=== PATIENT | male | born 1955 | race Caucasian/White ===

== ENCOUNTER 2017-12-11 20:54 | Emergency (ER) | payer MEDICAID, OTHER ==
[~2017-12-11] VITALS: Ht 165.1 cm; Wt 64.9 kg
[~2017-12-11 20:54] MED LIST: CIPR500T4 PO; FINA5TAB1 PO; PHEN-329 PO
[2017-12-11 21:06] VITALS: BP 124/97
--- NOTE | 2017-12-11 21:11 | NUR ---
PT AMBULATED TO ER BED WITH STEADY GAIT
--- NOTE | 2017-12-11 21:15 | NUR ---
62/M CAME IN ED, C/O URINARY RETENTION X1 DAY, PT HAD PROSTATECTOMY IN [place] 3 WEEKS AGO. PT IS C/O 10/10 INTERMITTENT GENITAL PAIN, NONRADIATING, WORSENING WHEN ATTEMPTING TO PEE. PT IS UNABLE TO URINATE AT THIS TIME. PT HAS AN INDWELLING URINARY CATH, CAPPED. PT STATED HE IS UNDER BLADDER TRAINING AT THIS TIME. PT DENIES FEVER, CP, SOB, COUGH, N/V/D; SKIN IS INTACT, PINK/WARM/DRY; AAOX4, PERRL, WITH EVEN AND STEADY GAIT; LUNGS CLEAR BL, BREATHING UNLABORED; HR EVEN AND REGULAR, BL PERIPHERAL PULSES PRESENT; BS ACTIVE X4, NO TENDERNESS TO PALPATION; PATIENT POSITIONED FOR COMFORT; HOB ELEVATED; BEDRAILS UP X2; BED DOWN.
--- NOTE | 2017-12-11 22:17 | NUR ---
PT FEELING THE URGE TO PEE WITH SUPRAPUBIC FULLNESS AND PAIN, IRRIGATED BLADDER VIA INDWELLING URINARY CATH WITH 300ML STERILE WATER, 450ML CLOUDY ORANGE URINE COLLECTED. PT REPORTS RELIEF OF PAIN AT THIS TIME. WILL NOTIFY
--- NOTE | 2017-12-11 22:39 | NUR ---
REMOVED PT'S PREVIOUS URINARY CATH, PT TOLERATED WELL. RE-INSERTED NEW CASTANO CATH PER , 10ML DARK YANYC CLOUDY URINE NOTED, WILL MONITOR. PT TOLERATED WELL.
[2017-12-11 23:53] LABS: APPEARANCE,URINE CLOUDY (CLEAR); BILIRUBIN,URINE 1+ (NEGATIVE); BLOOD, URINE 3+ (NEGATIVE); LEUKOCYTE ESTERASE ,URINE 2+ (NEGATIVE); NITRITE, URINE POSITIVE (NEGATIVE); PH,URINE 5.5 (5.0-9.0); UGLUCOSE TRACE (NEGATIVE)
[2017-12-12 00:12] LABS: COLOR,URINE AMBER (YELLOW)
[2017-12-12 00:13] LABS: RBC,URINE TOO NUMEROUS TO COUN /HPF (0-5)
[2017-12-12 00:14] LABS: WBC,URINE 80-100 /HPF (0-5)
[2017-12-12] MEDS ORDERED: IBUPROFEN 800 MG TAB PO ONE (00:30)
[2017-12-12] MEDS ORDERED: PHENAZOPYRIDINE 100 MG TAB PO ONE (00:30)
[2017-12-12] MEDS ORDERED: LEVOFLOXACIN 500 MG TAB PO ONE (00:30)
--- NOTE | 2017-12-12 01:30 | NUR ---
URINARY CATH CONNECTED TO LEG BAG. PT EDUCATED, PT VERBALIZED UNDERSTANDING.
[2017-12-12 01:50] VITALS: BP 141/85
--- NOTE | 2017-12-12 01:50 | NUR ---
Patient discharged with v/s stable. Written and verbal after care instructions given and explained. Patient alert, oriented and verbalized understanding of instructions. Ambulatory with steady gait. All questions addressed prior to discharge. ID band removed. Patient advised to follow up with PMD. Rx of MOTRIN, PYRIDIUM, MACROBID given. Patient educated on indication of medication including possible reaction and side effects. Opportunity to ask questions provided and answered.
--- NOTE | 2017-12-14 18:54 | NUR ---
ADDENDUM: URINE CULTURE RESULTS, E. COLI ESBL. REVIEWED BY DR. ROSALES. NO FARTHER TX. NEEDED,PT. DISCHARGED WITH MACRODANTIN/PYRIDIUM.
== END 2017-12-12 01:50 | disposition home or self-care (01) ==
LOC: MED 20:54
DX: N39.0 Urinary tract infection, site not specified (principal)
CPT/HCPCS: 51702; 81001; 87086; 87186; 99284

== ENCOUNTER 2018-01-30 13:16 | Emergency (ER) | payer MEDICAID, OTHER ==
[~2018-01-30] VITALS: Ht 165.1 cm; Wt 59.4 kg
[2018-01-30 13:35] VITALS: BP 129/107
--- NOTE | 2018-01-30 14:12 | NUR ---
Dr. Kilgore evaluating patient at bedside.
[2018-01-30] MEDS ORDERED: KETOROLAC 60 MG/2 ML VIAL IM ONE (14:25)
[2018-01-30] MEDS ORDERED: LEVOFLOXACIN 500 MG TAB PO ONE (14:25)
[2018-01-30] MEDS ORDERED: MORPHINE SULFATE 2 MG/ML SYR IM ONE (14:25)
[2018-01-30 15:02] LABS: APPEARANCE,URINE SL CLOUDY (CLEAR); BILIRUBIN,URINE NEGATIVE (NEGATIVE); BLOOD, URINE 2+ (NEGATIVE); COLOR,URINE YELLOW (YELLOW); LEUKOCYTE ESTERASE ,URINE 3+ (NEGATIVE); NITRITE, URINE POSITIVE (NEGATIVE); UGLUCOSE NEGATIVE (NEGATIVE)
[2018-01-30 15:19] LABS: BARBITURATE, URINE NEG. ng/ml (NEG <=200); BENZODIAZEPINE, URINE NEG. ng/mL (NEG <=200); CANNABINOID, URINE NEG. ng/mL (NEG <=50); COCAINE, URINE NEG. ng/mL (NEG <=300); OPIATE, URINE NEG. ng/mL (NEG <=2000); PHENCYCLIDINE SCREEN,URINE NEG. ng/mL (NEG <=25)
[2018-01-30 15:56] LABS: RBC,URINE 3-10 (FEW) /HPF (0-5); WBC,URINE TOO MANY TO COUNT /HPF (0-5)
[2018-01-30 16:17] VITALS: BP 135/68
--- NOTE | 2018-01-30 16:17 | NUR ---
Patient discharged with v/s stable. Written and verbal after care instructions given and explained. Patient alert, oriented and verbalized understanding of instructions. Ambulatory with steady gait. All questions addressed prior to discharge. ID band removed. Patient advised to follow up with PMD. Rx of PYRIDIUM AND LEVAQUIN AND FLOMAX given. Patient educated on indication of medication including possible reaction and side effects. Opportunity to ask questions provided and answered.
== END 2018-01-30 16:17 | disposition home or self-care (01) ==
LOC: MED 13:16
DX: N39.0 Urinary tract infection, site not specified (principal); N41.9 Inflammatory disease of prostate, unspecified; Z79.2 Long term (current) use of antibiotics; Z79.899 Other long term (current) drug therapy
CPT/HCPCS: 80305; 81001; 96372; 96374; 99284; J1885; J2270

== ENCOUNTER 2018-01-31 12:22 | Emergency (ER) | payer OTHER ==
[~2018-01-31] VITALS: Ht 162.6 cm; Wt 63.5 kg
[2018-01-31 12:31] VITALS: BP 123/90
--- NOTE | 2018-01-31 12:36 | NUR ---
Patient ambulated to bed 12. RN evaluating patient at bedside.
--- NOTE | 2018-01-31 12:41 | NUR ---
C/O DIZZINESS AFTER TAKING NEW ABX LEVOFLOXACIN SINCE YESTERDAY. PT WAS SEEN HERE YESTERDAY, TREATED AND DC'D FOR UTI. DENIES N/V/SOB DENIES FEVERS/CHILLS. RESP EVENA ND UNLABORED. ABD SOFT, FLAT, NO REBOUND TENDERNESS. REPORTS POLYURIA, BUT DENIES DYSURIA. HX: HTN
--- NOTE | 2018-01-31 13:21 | NUR ---
PT LAYING IN BED, WITH EYES CLOSED, IN NAD. WAITING FIR ER DISPOSITION,
[2018-01-31] MEDS ORDERED: METOCLOPRAMIDE 10 MG TAB PO ONE (13:40)
[2018-01-31] MEDS ORDERED: ONDANSETRON 4 MG ODT PO ONE (13:40)
[2018-01-31] MEDS ORDERED: MECLIZINE 25 MG TAB PO ONE (13:40)
--- NOTE | 2018-01-31 14:09 | NUR ---
ORDESR RECEIVED, MEDICATED ORDERED.
[2018-01-31 14:30] VITALS: BP 123/89
== END 2018-01-31 14:30 | disposition home or self-care (01) ==
LOC: MED 12:22
DX: T39.8X5A Adverse effect of other nonopioid analgesics and antipyretics, not elsewhere classified, initial encounter (principal); Y92.89 Other specified places as the place of occurrence of the external cause; I10 Essential (primary) hypertension
CPT/HCPCS: 99284; J8597; S0119

== ENCOUNTER 2018-10-25 05:25 | Inpatient (IN) | payer BC, OTHER ==
[~2018-10-25] VITALS: Ht 162.6 cm; Wt 61.2 kg
[2018-10-25 05:30] VITALS: BP 119/80
--- NOTE | 2018-10-25 05:30 | NUR ---
PT TAKEN TO BED 11. TRIAGE PERFORMED AT BEDSIDE.
--- NOTE | 2018-10-25 05:40 | NUR ---
PT TO ED WITH C/O EPIGASTRIC PAIN INCREASING OVER 2 HRS. +N/V. ABD IS SOFT NON TENDER. NO DISTENTION NOTED. BOWEL SOUNDS ACTIVE. REPORTS MILD PAIN UPON PALPATION. PT PLACED INTO BED, PENDING MD CHAO.
[2018-10-25] MEDS ORDERED: NACL 0.9% 1,000 ML IV ONE ×3 (05:52→07:55)
[2018-10-25] MEDS ORDERED: MORPHINE SULFATE 4 MG/ML SYR IVP ONE (05:55)
[2018-10-25] MEDS ORDERED: ONDANSETRON 4 MG/2 ML VIAL IVP ONE (05:55)
--- NOTE | 2018-10-25 06:05 | NUR ---
EKG PERFORMED AT BEDSIDE WITH TRIAGE NURSE AND SPOUSE PRESENT. PT COVERED IN GOWN AND BLANKET DURING PROCEDURE
[2018-10-25 06:27] LABS: ANION GAP 12.3 (8-16); CARBON DIOXIDE 27.3 mmol/L (21-32); CREATININE 0.9 mg/dL (0.7-1.3); POTASSIUM 3.6 mmol/L (3.5-5.1)
--- NOTE | 2018-10-25 06:30 | NUR ---
PT REPORTS RELIEF OF PAIN AFTER MORPHINE ADMIN. CURRENTLY 10/20.
[2018-10-25 06:31] LABS: ALBUMIN 3.3 g/dL (3.4-5.0)
[2018-10-25 06:48] LABS: BASOPHILS % (AUTO) 0.1 % (0.0-2.0); EOSINOPHILS % (AUTO) 0.1 % (0.0-4.0); HEMOGLOBIN 17.2 g/dL (12.0-18.0); LYMPHOCYTES # (AUTO) 1.3 K/uL (2.0-11.5); LYMPHOCYTES % (AUTO) 11.9 % (20.5-51.1); MEAN CORPUSCULAR HEMOGLOBIN 32 pg (27-31); MEAN CORPUSCULAR HGB CONC 34 g/dL (33-37); MEAN CORPUSCULAR VOLUME 91.9 fL (80-94); MONOCYTES # (AUTO) 1.3 K/uL (0.8-1.0); MONOCYTES % (AUTO) 12.6 % (1.7-9.3); NEUTROPHILS # (AUTO) 8.1 K/uL (1.8-7.7); NEUTROPHILS % (AUTO) 75.3 % (42.2-75.2); PLATELET COUNT (AUTO) 178 K/uL (140-450); RED BLOOD CELL COUNT(AUTO) 5.44 MIL/uL (4.20-6.10); RED CELL DISTRIBUTION WIDTH 14.6 % (11.6-13.7); WHITE BLOOD COUNT (AUTO) 10.7 K/uL (4.8-10.8)
--- NOTE | 2018-10-25 07:10 | NUR ---
US AT BEDSIDE.
--- NOTE | 2018-10-25 07:12 | NUR ---
REPORT GIVEN TO CLIFFORD BERNSTEIN. TRANSFER OF CARE AT THIS TIME.
[2018-10-25] MEDS ORDERED: ONDANSETRON 4 MG/2 ML VIAL IVP PRN (07:35)
[2018-10-25] MEDS ORDERED: HYDROcodone/APAP 7.5/325 MG 1 TAB PO PRN (07:35)
[2018-10-25] MEDS ORDERED: DEXT 5% /NACL 0.9% 1,000 ML IV ONE (07:50)
[2018-10-25] MEDS ORDERED: MORPHINE SULFATE 2 MG/ML SYR IVP ONE (07:55)
--- NOTE | 2018-10-25 08:01 | NUR ---
Pt transferred to Med/Surg via W/C WITH CLIFFORD REED .
--- NOTE | 2018-10-25 08:11 | NUR ---
UA SENT TO LAB, PT AMB W/O ASST TO BRP. VSS, PT STABLE AT THIS TIME.
--- NOTE | 2018-10-25 08:15 | NUR ---
Pt admitted at this time to room 124A from ER via wheelchair. Pt able to amb with steady gait. Report received from ER nurse Funmilayo. Pt aaox4, well-groomed, cheerful & cooperative. Medical hx obtained from pt. Pt c/o 8/10 burning epigastric pain. Abd soft with active bowel sounds on all quads. Skin intact, mild jaundice present to skin & sclera of both eyes. Left AC IV intact with ongoing NS bolus 1000ml. Pt oriented to room & unit. Able to verbalize understanding of & return demonstrate teachings. Call light within reach.
[2018-10-25 08:25] LABS: PROTHROMBIN TIME 9.9 secs (10.8-13.4)
--- NOTE | 2018-10-25 08:26 | NUR ---
Patient will be admitted to care of [facility]. Admited to Med/Surg. Will go to room 124A. Belongings list completed. Report to LORELEI.
[2018-10-25 08:30] VITALS: BP 121/80
[2018-10-25] MEDS: DOCUSATE SODIUM 100 MG GELCAP PO SCH ×2 (08:50→20:40)
[2018-10-25 09:48] LABS: BARBITURATE, URINE NEG ng/ml (NEG <=200); BENZODIAZEPINE, URINE NEG ng/mL (NEG <=200); CANNABINOID, URINE NEG ng/mL (NEG <=50); COCAINE, URINE NEG ng/mL (NEG <=300); OPIATE, URINE NEG ng/mL (NEG <=2000); PHENCYCLIDINE SCREEN,URINE NEG ng/mL (NEG <=25)
[2018-10-25 09:53] LABS: CHOL/HDL RATIO 3.9 (1-4.5); FREE T4 (FREE THYROXINE) 1.35 ng/dL (0.76-1.46); MAGNESIUM 2.4 mg/dL (1.8-2.4); PHOSPHORUS 2.6 mg/dL (2.5-4.9); THYROID STIMULATING HORMONE 1.29 uIU/mL (0.34-3.74)
[2018-10-25 10:15] LABS: APPEARANCE,URINE CLEAR (CLEAR); BILIRUBIN,URINE 2+ (NEGATIVE); BLOOD, URINE NEGATIVE (NEGATIVE); COLOR,URINE YELLOW (YELLOW); LEUKOCYTE ESTERASE ,URINE TRACE (NEGATIVE); NITRITE, URINE NEGATIVE (NEGATIVE); UGLUCOSE NEGATIVE (NEGATIVE)
[2018-10-25] MEDS ORDERED: LACTATED RINGERS 1,000 ML IV SCH (10:15)
[2018-10-25 10:27] LABS: RBC,URINE 0-5 /HPF (0-5); WBC,URINE 0-5 /HPF (0-5)
--- NOTE | 2018-10-25 11:15 | NUR ---
Pt c/o feeling bladder fullness. Pt with frequent small amount urine in urinal (20-50ml). Pt states he does not feel relieved when he voids. Bladder distended upon palpation. 639ml bladder contents present on bladder scan. Encouraged pt to amb to restroom. No urine after ambulation. Dr. Martin notified.
--- NOTE | 2018-10-25 12:10 | NUR ---
Pt straight catheterization completed. Bladder distention present with pt c/o 5/10 bladder pain prior to procedure. Drained 680ml or clear tawanda urine, using sterile technique & 14Fr straight Perez cath. Bladder distention resolved, pt states bladder pain is relieved. Cath withdrawn, pericare provided.
[2018-10-25] MEDS: NACL 0.9% 1,000 ML IV SCH ×2 (12:22→17:37)
--- NOTE | 2018-10-25 13:31 | NUR ---
PATIENT HAS BEEN SCREENED AND CATEGORIZED MODERATE NUTRITION RISK. PATIENT WILL BE SEEN WITHIN 3-5 DAYS OF ADMISSION. 10/27/18[address]
--- NOTE | 2018-10-25 14:35 | NUR ---
Pt c/o 11/19 bladder pain again. Bladder distention present upon palpation. 520ml bladder contents via bladder scan post void of 50ml. Dr. Martin notified.
[2018-10-25] MEDS ORDERED: TAMSULOSIN 0.4 MG CAP PO SCH (15:00)
[2018-10-25] MEDS ORDERED: TAMSULOSIN 0.4 MG CAP ONE (15:00)
[2018-10-25] MEDS ORDERED: LEVOFLOXACIN 750 MG/D5W PREMIX 150 ML IV SCH (15:00)
--- NOTE | 2018-10-25 15:10 | NUR ---
500ml clear yellow urine drained via straight cath with sterile technique. Bladder distention resolved. Per pt, bladder pain is relieved.
[2018-10-25] MEDS ORDERED: PANTOPRAZOLE 40 MG INJ VIAL IVP SCH (15:32)
[2018-10-25 16:00] VITALS: BP 110/75
--- NOTE | 2018-10-25 18:23 | NUR ---
Pt resting in bed, no signs of distress. Pt states he voids more amounts after Flomax was given. No bladder distention noted. Call light within reach. No c/o abd pain at this time.
[2018-10-25] MEDS: LACTATED RINGERS 1,000 ML IV SCH ×2 (18:49→23:54)
--- NOTE | 2018-10-25 19:00 | NUR ---
Indwelling landry cath 16Fr/10ml inserted at this time, drained 300ml clear yellow urine. Bladder distention present prior to landry cath insert, relieved post procedure. Pt denies any pain at this time. Left AC IV intact with ongoing LR @ 175ml/hr.
--- NOTE | 2018-10-25 19:05 | NUR ---
Bedside report given to pm nurse
--- NOTE | 2018-10-25 19:06 | NUR ---
RECEIVED REPORT FROM DAY SHIFT NURSE JUWAN-RN AT BEDSIDE. PT RESTING IN BED, AOX4- LATVIAN SPEAKER, ON ROOM AIR WITH LEFT AC #20G RUNNING LACTATED RINGERS @175ML/HR. CASTANO CATHETER IN PLACE. DISCUSSED PLAN OF CARE AND PT VERBALIZED UNDERSTANDING. NO S/S OF RESPIRATORY DISTRESS OR DISCOMFORT NOTED AT THIS TIME. BED IN LOWEST POSITION, BED BREAKS ON, BOTH SIDE RAILS UP. BEDSIDE TABLE AND CALL LIGHT ARE WITHIN REACH. WILL CONTINUE TO MONITOR.
[2018-10-25 20:00] VITALS: BP 118/77
--- NOTE | 2018-10-25 20:00 | NUR ---
VITAL SIGNS TAKEN AND TOLERATED WELL. NO S/S OF RESPIRATORY DISTRESS OR DISCOMFORT NOTED AT THIS TIME. WILL CONTINUE TO MONITOR.
--- NOTE | 2018-10-25 20:40 | NUR ---
SCHEDULED MEDICATION COLACE GIVEN AND TOLERATED WELL. SPOKE WITH DR. MARTINES REGARDING PT NPO STATUS AND ADVISED COLACE PO WAS OK TO GIVE IF PT TOOK MEDICATION. NO S/S OF RESPIRATORY DISTRESS OR DISCOMFORT NOTED AT THIS TIME. WILL CONTINUE TO MONITOR.
--- NOTE | 2018-10-25 22:00 | NUR ---
PT RESTING IN BED. NO S/S OF RESPIRATORY DISTRESS OR DISCOMFORT NOTED AT THIS TIME. WILL CONTINUE TO MONITOR.
[2018-10-25] MEDS ORDERED: PIPERACILLIN/TAZOBACTAM 3.375 GM VIAL IV ONE (23:52)
[2018-10-25] MEDS: PIPER/TAZO 3.375GM/D5W PREMIX 50 ML IV SCH (23:53)
--- NOTE | 2018-10-25 23:53 | NUR ---
SCHEDULED MEDICATION ZOSYN GIVEN AND TOLERATED WELL. NO S/S OF RESPIRATORY DISTRESS OR DISCOMFORT NOTED AT THIS TIME. WILL CONTINUE TO MONITOR.
[2018-10-26] VITALS: BP 117/77
--- NOTE | 2018-10-26 | NUR ---
VITAL SIGNS TAKEN AND TOLERATED WELL. NO S/S OF RESPIRATORY DISTRESS OR DISCOMFORT NOTED AT THIS TIME. WILL CONTINUE TO MONITOR.
[2018-10-26] MEDS: LACTATED RINGERS 1,000 ML IV SCH ×4 (01:58→23:15)
--- NOTE | 2018-10-26 02:00 | NUR ---
PT SLEEPING IN BED. NO S/S OF RESPIRATORY DISTRESS OR DISCOMFORT NOTED AT THIS TIME. WILL CONTINUE TO MONITOR.
--- NOTE | 2018-10-26 04:00 | NUR ---
PT SLEEPING IN BED. NO S/S OF RESPIRATORY DISTRESS OR DISCOMFORT NOTED AT THIS TIME. WILL CONTINUE TO MONITOR.
[2018-10-26] MEDS: PIPER/TAZO 3.375GM/D5W PREMIX 50 ML IV SCH ×4 (05:38→23:48)
--- NOTE | 2018-10-26 05:38 | NUR ---
SCHEDULED MEDICATION ZOSYN GIVEN AND TOLERATED WELL. NO S/S OF RESPIRATORY DISTRESS OR DISCOMFORT NOTED AT THIS TIME. WILL CONTINUE TO MONITOR.
[2018-10-26] MEDS ORDERED: PIPERACILLIN/TAZOBACTAM 3.375 GM VIAL IV ONE (05:43)
--- NOTE | 2018-10-26 07:19 | NUR ---
ENDORSED PT CARE TO DAY SHIFT NURSE JUWAN-RN FOR CONTINUITY OF CARE.
--- NOTE | 2018-10-26 07:20 | NUR ---
Received report from pm nurse Sera. Pt resting in bed, awake, verbally responsice, no c/o pain/discomfort. Perez cath in place & draining clear yellow urine. Left AC IV intact with ongoing LR @ 175ml/hr. Call light within reach.
[2018-10-26 07:32] LABS: ALBUMIN 2.3 g/dL (3.4-5.0); ANION GAP 14.7 (8-16); CARBON DIOXIDE 24.8 mmol/L (21-32); CREATININE 0.7 mg/dL (0.7-1.3); POTASSIUM 3.5 mmol/L (3.5-5.1); TOTAL BILIRUBIN 1.5 mg/dL (0.0-1.0)
[2018-10-26 08:00] VITALS: BP 109/76
--- NOTE | 2018-10-26 08:00 | NUR ---
Temperature elevated. Pt has no c/o discomfort at this time. Room temp decreased, fan turned on. Dr. Martin notified of temp. Physician to input order for acetaminophen.
[2018-10-26] MEDS: DOCUSATE SODIUM 100 MG GELCAP PO SCH ×3 (08:06→21:17)
[2018-10-26] MEDS: TAMSULOSIN 0.4 MG CAP PO SCH ×2 (08:06→09:00)
[2018-10-26] MEDS: PANTOPRAZOLE 40 MG INJ VIAL IVP SCH ×2 (08:06→09:00)
[2018-10-26 08:15] LABS: HEPATITIS A ANTIBODY IGM Negative (Negative); HEPATITIS B CORE AB TOTAL Negative (Negative); HEPATITIS B SURFACE ANTIBODY Non Reactive (.); HEPATITIS B SURFACE ANTIGEN Negative (Negative)
[2018-10-26] MEDS ORDERED: ACETAMINOPHEN 650 MG SUPP RC PRN (08:40)
--- NOTE | 2018-10-26 09:00 | NUR ---
Temp decreased upon reassessment. Pt denies any discomfort, no signs of distress. Left AC IV intact with ongoing LR @ 175ml/hr. Call light within reach.
[2018-10-26 12:01] VITALS: BP 105/57
[2018-10-26 16:00] VITALS: BP 114/77
[2018-10-26] MEDS ORDERED: BUPIVACAINE-MPF/EPI 0.25% 30 ML VIAL INJ ONE (18:08)
--- NOTE | 2018-10-26 18:15 | NUR ---
Clorhexidine wipe down completed for preop prep. Pt no c/o discomfort, Left AC IV intact with ongoing LR @ 175 ml/hr. Sister Flory & nigerald at bedside. Call light within reach.
--- NOTE | 2018-10-26 19:05 | NUR ---
Bedside report given to pm nurse Sera. Pt in bed, awake, no signs of distress, niece & sister at bedside.
--- NOTE | 2018-10-26 19:06 | NUR ---
RECEIVED REPORT FROM DAY SHIFT NURSE JUWAN-RN AT BEDSIDE. PT RESTING IN BED, AOX4- TAMAZIGHT SPEAKER, ON ROOM AIR WITH LEFT AC #20G RUNNING LACTATED RINGERS @175ML/HR. CASTANO CATHETER IN PLACE. DISCUSSED PLAN OF CARE AND PT VERBALIZED UNDERSTANDING. NO S/S OF RESPIRATORY DISTRESS OR DISCOMFORT NOTED AT THIS TIME. BED IN LOWEST POSITION, BED BREAKS ON, BOTH SIDE RAILS UP. BEDSIDE TABLE AND CALL LIGHT ARE WITHIN REACH. WILL CONTINUE TO MONITOR.
[2018-10-26 20:00] VITALS: BP 122/78
--- NOTE | 2018-10-26 20:00 | NUR ---
VITAL SIGNS TAKEN AND TOLERATED WELL. NO S/S OF RESPIRATORY DISTRESS OR DISCOMFORT NOTED AT THIS TIME. WILL CONTINUE TO MONITOR.
--- NOTE | 2018-10-26 21:17 | NUR ---
DR. BARBARA JONES HAS RESCHEDULED SURGERY FOR TOMORROW 10/27/2018 WITH NEW ORDERS TO BE ON A CLEAR LIQUID DIET UNTIL MIDNIGHT NPO. PT AWARE. SCHEDULED MEDICATION COLACE GIVEN AND TOLERATED WELL. NO S/S OF RESPIRATORY DISTRESS OR DISCOMFORT NOTED AT THIS TIME. WILL CONTINUE TO MONITOR.
--- NOTE | 2018-10-26 22:00 | NUR ---
PT SLEEPING AT THIS TIME. NO S/S OF RESPIRATORY DISTRESS OR DISCOMFORT NOTED AT THIS TIME. WILL CONTINUE TO MONITOR.
[2018-10-27] VITALS: BP 103/65
--- NOTE | 2018-10-27 | NUR ---
SCHEDULED MEDICATION GIVEN AND VITAL SIGNS TAKEN. PT TOLERATED WELL. NO S/S OF RESPIRATORY DISTRESS OR DISCOMFORT NOTED AT THIS TIME. WILL CONTINUE TO MONITOR.
--- NOTE | 2018-10-27 02:00 | NUR ---
PT SLEEPING IN BED. NO S/S OF RESPIRATORY DISTRESS OR DISCOMFORT NOTED AT THIS TIME. WILL CONTINUE TO MONITOR.
--- NOTE | 2018-10-27 04:00 | NUR ---
PT CONTINUES TO SLEEP IN BED. NO S/S OF RESPIRATORY DISTRESS OR DISCOMFORT NOTED AT THIS TIME. WILL CONTINUE TO MONITOR.
[2018-10-27] MEDS: LACTATED RINGERS 1,000 ML IV SCH ×3 (04:19→21:32)
[2018-10-27] MEDS: PIPER/TAZO 3.375GM/D5W PREMIX 50 ML IV SCH ×4 (05:43→21:31)
--- NOTE | 2018-10-27 05:43 | NUR ---
SCHEDULED MEDICATION ZOSYN GIVEN AND TOLERATED WELL. NO S/S OF RESPIRATORY DISTRESS OR DISCOMFORT NOTED AT THIS TIME. WILL CONTINUE TO MONITOR.
--- NOTE | 2018-10-27 07:34 | NUR ---
ENDORSED PT CARE TO DAY SHIFT NURSE ARAMIS-RN FOR CONTINUITY OF CARE.
--- NOTE | 2018-10-27 07:35 | NUR ---
RECEIVED BEDSIDE REPORT FROM ACCOUNTS PAYABLE ACCOUNTANT NURSE. PATIENT IS AWAKE, ALERT AND ORIENTEDX4. NO SIGNS OF DISTRESS ON RA. SKIN IS INTACT. PATIENT IS AMBULATORY. CONTINENT. IV ON L AC 20G INFUSING LR AT 175. CLEAN, DRY AND INTACT. PATIENT HAS A CASTANO, PATIENT W YELLOW URINE. PATIENT ABLE TO MAKE NEEDS KNOWN. BED IN LOW POSITION. CALL LIGHT WITHIN REACH. WILL CONTINUE TO MONITOR
[2018-10-27 08:00] VITALS: BP 111/70
[2018-10-27 08:03] LABS: ANION GAP 11.7 (8-16); CARBON DIOXIDE 26.4 mmol/L (21-32); CREATININE 0.7 mg/dL (0.7-1.3); POTASSIUM 3.1 mmol/L (3.5-5.1)
[2018-10-27] MEDS: TAMSULOSIN 0.4 MG CAP PO SCH (08:30)
[2018-10-27 08:42] LABS: BASOPHILS % (AUTO) 0.2 % (0.0-2.0); EOSINOPHILS # (AUTO) 0.1 K/uL (0-0.4); EOSINOPHILS % (AUTO) 1.5 % (0.0-4.0); HEMATOCRIT 39.9 % (36-52); HEMOGLOBIN 13.9 g/dL (12.0-18.0); LYMPHOCYTES # (AUTO) 1.1 K/uL (2.0-11.5); LYMPHOCYTES % (AUTO) 11.3 % (20.5-51.1); MEAN CORPUSCULAR HEMOGLOBIN 32 pg (27-31); MEAN CORPUSCULAR HGB CONC 35 g/dL (33-37); MEAN CORPUSCULAR VOLUME 91.2 fL (80-94); MONOCYTES # (AUTO) 1.2 K/uL (0.8-1.0); MONOCYTES % (AUTO) 12.1 % (1.7-9.3); NEUTROPHILS # (AUTO) 7.5 K/uL (1.8-7.7); NEUTROPHILS % (AUTO) 74.9 % (42.2-75.2); PLATELET COUNT (AUTO) 126 K/uL (140-450); RED BLOOD CELL COUNT(AUTO) 4.38 MIL/uL (4.20-6.10); RED CELL DISTRIBUTION WIDTH 14.4 % (11.6-13.7)
[2018-10-27 08:57] LABS: MAGNESIUM 1.9 mg/dL (1.8-2.4); PHOSPHORUS 3.2 mg/dL (2.5-4.9)
[2018-10-27] MEDS: DOCUSATE SODIUM 100 MG GELCAP PO SCH ×2 (09:00→21:34)
[2018-10-27] MEDS ORDERED: POTASSIUM CHLORIDE 40 MEQ, LIDOCAINE 1% 25 MG in NACL 0.9% 250 ML IV SCH (09:30)
[2018-10-27] MEDS: PANTOPRAZOLE 40 MG INJ VIAL IVP SCH (09:45)
--- NOTE | 2018-10-27 09:50 | NUR ---
ADMINISTERED MEDS. PT TOLERATED WELL. PT EDUCATED ON SIDE EFFECTS. NO COMPLAINTS AT THIS TIME.
--- NOTE | 2018-10-27 09:50 | NUR ---
HELD PO MEDS AT THIS TIME. PER DR JONES KEEP PATIENT NPO. PATIENT VERBALIZED UNDERSTANDING
--- NOTE | 2018-10-27 11:27 | NUR ---
PATIENT IS SITTING IN CHAIR. NO SIGNS OF DISTRESS. PATIENT A LITTLE FRUSTRATED BECAUSE DR JONES SAID HE WOULD DO THE PROCEDURE TOMORROW, HE WAITED ALL DAY YESTERDAY AND DR JONES CANCELLED. THE PATIENT SAID DR JONES WOULD DO IT TODAY IN THE MORNING AND DR JONES CAME IN THIS MORNING TO TELL HIM IT WILL BE TONIGHT. PATIENT SAID IF HE KEEPS ON WAITING HE WILL LEAVE AND FIND ANOTHER PLACE TO GO.
--- NOTE | 2018-10-27 12:15 | NUR ---
GAVE PATIENT ZOSYN AT 1150. PATIENT EDUCATED ON SIDE EFFECTS AND TOLERATED WELL. DR PECK CHANGED ZOSYN ORDER TO Q8HRS. THERE WAS A BENJAMIN ZOSYN AT 1300. PER PHARMACIST HOLD 1300 ZOSYN AND GIVE THE NEXT DOSE WHICH WOULD BE 2100.
[2018-10-27 13:03] LABS: ALBUMIN 2.1 g/dL (3.4-5.0); BILIRUBIN,DIRECT 0.3 mg/dL (0.0-0.3); TOTAL BILIRUBIN 1.2 mg/dL (0.0-1.0)
--- NOTE | 2018-10-27 14:00 | NUR ---
PATIENT RESTING, WATCHING TV. STATING HE IS HUNGRY. TOLD HIM HE HAS TO WAIT TILL HIS PROCEDURE AND WHEN HE COMES BACK AND IS AWAKE, AND NOT NAUSEATED WE WOULD GIVE HIM FOOD. WILL CONTINUE TO MONITOR
--- NOTE | 2018-10-27 15:37 | NUR ---
PATIENT SITTING IN CHAIR WATCHING TV. NO SIGNS OF DISTRESS. WILL CONTINUE TO MONITOR
[2018-10-27 16:00] VITALS: BP 108/71
--- NOTE | 2018-10-27 17:20 | NUR ---
TOLERATED INCENTIVE SPIROMETRY THERAPY WELL WITHOUT ADVERSE REACTIONS NOTED ENCOURAGED PATIENT WITH ACKNOW LEDGEMENT TO USE INCENTIVE SPIROMETRY EVERY 1-2 HOURS WHILE AWAKE
--- NOTE | 2018-10-27 17:39 | NUR ---
PT PICKED UP BY OR NURSE. PT IN STABLE CONDITION.
--- NOTE | 2018-10-27 17:52 | NUR ---
PATIENT WAS BROUGHT TO PACU. PATIENT STATED, " I DON'T WANT YOU GUYS TO GIVE ME ANY BLOOD." PATIENT WAS INFORMED AND EDUCATED THAT A BLOOD TRANSFUSION WOULD ONLY BE GIVEN IF NEEDED DURING TODAY'S PROCEDURE. PT STILL STATED HE WOULD NOT LIKE TO RECEIVE ANY BLOOD TRANSFUSION.
[2018-10-27] MEDS ORDERED: SUCCINYLCHOLINE CHLORIDE 200 MG/10 ML VIAL IVP ONE (18:00)
[2018-10-27] MEDS ORDERED: PROPOFOL 200 MG/20 ML VIAL IV ONE (18:00)
[2018-10-27] MEDS ORDERED: DEXAMETHASONE 4 MG/ML VIAL ONE (18:00)
[2018-10-27] MEDS ORDERED: SEVOFLURANE 250 ML BTL INH ONE (18:00)
[2018-10-27] MEDS ORDERED: ROCURONIUM 50 MG/5 ML VIAL IV ONE (18:00)
[2018-10-27] MEDS ORDERED: ONDANSETRON 4 MG/2 ML VIAL ONE (18:00)
[2018-10-27] MEDS ORDERED: diphenhydrAMINE 50 MG/ML VIAL IVP PRN (18:05)
[2018-10-27] MEDS ORDERED: ONDANSETRON 4 MG/2 ML VIAL IVP PRN (18:05)
[2018-10-27] MEDS ORDERED: HYDROmorphone 1 MG/ML AMP IVP PRN (18:05)
[2018-10-27] MEDS ORDERED: MEPERIDINE 25 MG/ML SYR IVP PRN (18:05)
[2018-10-27] MEDS ORDERED: fentaNYL 0.05 MG/ML VIAL ONE (18:10)
[2018-10-27] MEDS ORDERED: MIDAZOLAM 2 MG/2 ML VIAL ONE (18:10)
[2018-10-27] MEDS ORDERED: MEPERIDINE 50 MG/ML SYR ONE (18:10)
[2018-10-27] MEDS: BUPIVACAINE-MPF/EPI 0.25% 30 ML VIAL INJ ONE ×2 (18:17→19:55)
--- NOTE | 2018-10-27 19:00 | NUR ---
PATIENT STILL IN OR. GAVE BEDSIDE REPORT TO SUPERVISOR ELECTRONICS ASSEMBLY NURSE.
--- NOTE | 2018-10-27 20:44 | NUR ---
RECOVERY ROOM NURSE CALLED SAID PT WILL BE TRANSFERRED BACK TO ROOM
[2018-10-27 21:00] VITALS: BP 106/67
--- NOTE | 2018-10-27 21:00 | NUR ---
RECEIVED PT FROM OR VIA GURNEY, PT AWAKE, SLEEPY. PT AROUSABLE TO NAME. PER DR. JONES PER ENDORSEMENT BY OR NURSE ON TELE MONITORING. PT HAD NO PAIN MEDS GIVEN BY RECOVERY ROOM. PT TATES PT HAS 8/10 PAIN , AND SAID HE SO SLEEPY BUT HE FEELS THE PAIN INCREASING. INFORMED DR. MARTINES, CARRIED OUT PRN ORDERS FOR PAIN. -PLACED PT IN COMFORTABLE POSITION, CALL LIGHT W/IN REACH . PT IN LOW POSITION. BED ALARM ON. WILL CONTINUE TO MONITOR
--- NOTE | 2018-10-27 21:06 | NUR ---
TALKED TO MELANIE HERBERT NURSE. DR. JONES SAID TO PUT PATIENT IN TELE
--- NOTE | 2018-10-27 21:49 | NUR ---
MEDICATED PT, WILL GIVE ZOFRAN PRN OEDERED PT SAID HE NAUSEOUS.
[2018-10-28] VITALS: BP 106/67
--- NOTE | 2018-10-28 01:50 | NUR ---
FINISHED BLOOD TRANSFUSION, VS: 99.5 F; 88; 17; 149/89; FLACC 0; 96% O2 SAT Addendum: 10/28/18 at 0223 by Leona Napoles RN PLS DELETE NOTE . WRONG PT.
--- NOTE | 2018-10-28 02:00 | NUR ---
POST BT VS: 100.1 F; 91; 19; 150/77 FLACC 0; 96% O2 SAT Addendum: 10/28/18 at 0223 by Leona Napoles RN PLS DELETE NOTE WRONG PT
--- NOTE | 2018-10-28 02:15 | NUR ---
PT WOKE UP, PT GIVEN SMALL LIQUIDS; AND NEREYDA. S/P SURGERY. DIET:CARDIAC DIET Addendum: 10/28/18 at 0244 by Leona Napoles RN DIET FROM CLEAR LIQUIDS (POST SURGERY) TO CARDIAC DIET FOR BREAKFAST(A.M)
[2018-10-28] MEDS: LACTATED RINGERS 1,000 ML IV SCH ×4 (02:24→08:48)
--- NOTE | 2018-10-28 02:42 | NUR ---
PATIENT SITTING UP HIGH FOWLERS; THEN WENT BACK TO [place] TO SLEEP; MONITORED.
[2018-10-28] MEDS: PIPER/TAZO 3.375GM/D5W PREMIX 50 ML IV SCH ×2 (05:14→13:20)
[2018-10-28 06:29] LABS: ANION GAP 12.2 (8-16); CARBON DIOXIDE 25.1 mmol/L (21-32); CREATININE 0.7 mg/dL (0.7-1.3); MAGNESIUM 1.8 mg/dL (1.8-2.4); PHOSPHORUS 3.6 mg/dL (2.5-4.9); POTASSIUM 4.3 mmol/L (3.5-5.1); TOTAL BILIRUBIN 0.9 mg/dL (0.0-1.0)
--- NOTE | 2018-10-28 07:18 | NUR ---
ENDORSED TO NEXT SHIFT FOR CONTINUITY OF CARE. PT STABLE AT THIS TIME.
--- NOTE | 2018-10-28 07:19 | NUR ---
RECEIVED BEDSIDE REPORT FROM MOLECULAR SPECTROSCOPIST NURSE. PATIENT IS AWAKE, ALERT AND ORIENTEDX4. NO SIGNS OF DISTRESS ON RA. SKIN HAS 3 INCISIONS AND A BECKA DRAIN ON R SIDE OF ABD. SURGICAL DRESSINGS ARE CLEAN, DRY AND INTACT. PATIENT IS AMBULATORY, GAIT IS STEADY. PATIENT IS CONTINENT BUT WITH A CASTANO D/T ENLARGED PROSTATE. L AC 20G INFUSING LR AT 100. CLEAN, DRY AND INTACT. PATIENT ABLE TO MAKE NEEDS KNOWN. BED IN LOW POSITION. CALL LIGHT WITHIN REACH. WILL CONTINUE TO MONITOR THE PATIENT.
--- NOTE | 2018-10-28 07:30 | NUR ---
RECEIVED BEDSIDE REPORT FROM RN ARAMIS, PT STABLE, AWAKE, AND ALERT AND ORIENTED X4. NO SIGNS OF DISTRESS NOTED. NO REDNESS, SWELLING, OR INFLAMMATION NOTED ON IV SITE. CALL HAWK WITHIN REACH. BED IN LOWEST POSITION. SAFETY MEASURES IN PLACE. PLAN OF CARE REVIEWED.
--- NOTE | 2018-10-28 07:34 | NUR ---
GAVE BEDSIDE REPORT TO ANTOLIN CÁRDENAS RN. PATIENT ENDORSED IN STABLE CONDITION
[2018-10-28 08:00] VITALS: BP 115/75
[2018-10-28 08:31] LABS: BASOPHILS % (AUTO) 0.1 % (0.0-2.0); HEMATOCRIT 39.2 % (36-52); HEMOGLOBIN 13.6 g/dL (12.0-18.0); LYMPHOCYTES # (AUTO) 0.4 K/uL (2.0-11.5); LYMPHOCYTES % (AUTO) 5.1 % (20.5-51.1); MEAN CORPUSCULAR HEMOGLOBIN 32 pg (27-31); MEAN CORPUSCULAR HGB CONC 35 g/dL (33-37); MEAN CORPUSCULAR VOLUME 90.8 fL (80-94); MONOCYTES # (AUTO) 0.4 K/uL (0.8-1.0); MONOCYTES % (AUTO) 4.3 % (1.7-9.3); NEUTROPHILS # (AUTO) 7.6 K/uL (1.8-7.7); NEUTROPHILS % (AUTO) 90.5 % (42.2-75.2); PLATELET COUNT (AUTO) 139 K/uL (140-450); RED BLOOD CELL COUNT(AUTO) 4.31 MIL/uL (4.20-6.10); RED CELL DISTRIBUTION WIDTH 14.4 % (11.6-13.7); WHITE BLOOD COUNT (AUTO) 8.4 K/uL (4.8-10.8)
[2018-10-28] MEDS: PANTOPRAZOLE 40 MG INJ VIAL IVP SCH (08:36)
[2018-10-28] MEDS: TAMSULOSIN 0.4 MG CAP PO SCH (08:39)
[2018-10-28] MEDS: DOCUSATE SODIUM 100 MG GELCAP PO SCH (08:39)
--- NOTE | 2018-10-28 08:45 | NUR ---
ADMINISTERED SCHEDULED MEDICATIONS AND PRN NORCO FOR 5/10 ABDOMINAL PAIN. PT TOLERATED WELL. NO OTHER NEEDS AT THIS TIME.
[2018-10-28] MEDS ORDERED: HYDR-5122 PO (09:18)
[2018-10-28] MEDS ORDERED: TAMS0.4C96 PO (09:18)
[2018-10-28] MEDS ORDERED: DOCU-299 PO (09:18)
[2018-10-28] MEDS ORDERED: BENZONATATE 100 MG CAPLF PO PRN (10:00)
--- NOTE | 2018-10-28 10:24 | NUR ---
MADE DR CASTILLO AWARE OF PT REQUEST FOR COUGH MEDICINE AND FLOMAX PRESCRIPTION.
[2018-10-28] MEDS ORDERED: BENZ100C6 PO (10:32)
--- NOTE | 2018-10-28 11:26 | NUR ---
DR. JONES AT THE BEDSIDE.
--- NOTE | 2018-10-28 11:45 | NUR ---
DR CASTILLO AT BEDSIDE TO TAKE OUT BECKA DRAIN. 5 ML SEROUSANGUINOUS DRAINAGE NOTED.
[2018-10-28 12:00] VITALS: BP 105/64
--- NOTE | 2018-10-28 12:06 | NUR ---
BECKA DRAIN SITE DRESSING AND SKIN INCISION DRESSINGS ARE CLEAN, DRY, AND INTACT.
--- NOTE | 2018-10-28 13:00 | NUR ---
CASTANO CATHETER DISCONTINUED.
--- NOTE | 2018-10-28 13:30 | NUR ---
ADMINISTERED SCHEDULED MEDICATIONS, PT TOLERATED WELL. NO OTHER NEEDS AT THIS TIME.
--- NOTE | 2018-10-28 14:40 | NUR ---
D/C INSTRUCTIONS AND PRESCRIPTION GIVEN TO PT AND FAMILY. PT VERBALIZED UNDERSTANDING. QUESTIONS AND CONCERNS WERE ANSWERED. D/C IV, CATHETER TIP INTACT, BLEEDING CONTROLLED. PT'S VACCINES UP TO DATE, RECEIVED FLU AND PNEUMONIA VACCINE IN SEPTEMBER 2018. DISCHARGE PHOTOGRAPHS OF SKIN INCISIONS TAKEN, DRESSINGS CHANGED. NO BLEEDING OR INFLAMMATION NOTED AROUND SKIN INCISIONS. PT AMBULATED TO THE WHEELCHAIR WITH STEADY GAIT. ESCORTED PT TO THE LOBBY AND PICKED UP BY FAMILY. PT IN STABLE CONDITION. Addendum: 10/28/18 at 1602 by Apollo Everett RN ABDOMINAL BINDER PUT ON PT PER MD ORDER.
== END 2018-10-28 14:40 | disposition home or self-care (01) | DRG 417 ==
LOC: MED 05:25 → MTU 07:32
PROVIDERS: ADMIT General Practice; ATTEND General Practice
PROC: 0FT44ZZ Resection of Gallbladder, Percutaneous Endoscopic Approach (ICD-10-PCS; principal; 2018-10-27 09:30)
DX: K85.10 Biliary acute pancreatitis without necrosis or infection (principal); E43 Unspecified severe protein-calorie malnutrition; K80.12 Calculus of gallbladder with acute and chronic cholecystitis without obstruction; E87.1 Hypo-osmolality and hyponatremia; J90 Pleural effusion, not elsewhere classified; J98.11 Atelectasis; E44.1 Mild protein-calorie malnutrition; E78.5 Hyperlipidemia, unspecified; R82.2 Biliuria; N40.1 Benign prostatic hyperplasia with lower urinary tract symptoms; R33.8 Other retention of urine; R10.819 Abdominal tenderness, unspecified site; E87.6 Hypokalemia; E86.0 Dehydration; I11.9 Hypertensive heart disease without heart failure; K76.89 Other specified diseases of liver; Z68.23 Body mass index [BMI] 23.0-23.9, adult; Z87.440 Personal history of urinary (tract) infections
CPT/HCPCS: 36415; 71045; 74160; 76705; 80048; 80053; 80076; 80305; 81001; 82150; 82330; 82374; 83036; 83690; 83735; 83880; 84100; 84439; 84443; 84484; 85025; 85610; 85730; 86140; 86704; 86706; 86708; 86709; 86803; 86886; 86900; 86901; 87081; 87340; 88304; 93005; 96361; 96374; 96375; 99285; C1758; C1887; C9113; J0330; J1100; J1170; J1956; J2001; J2175; J2250; J2270; J2405; J2543; J2704; J3010; J3480; J3490; J7030; J7060; J7120; Q0092; Q9967

== ENCOUNTER 2022-07-22 04:20 | Emergency (ER) | payer BC, MEDICARE ==
[~2022-07-22] VITALS: Ht 167.6 cm; Wt 68.0 kg
[2022-07-22 04:20] VITALS: BP 0/0
[~2022-07-22 04:20] MED LIST changes: +BENZ100C6 PO; +CALCIUM CHLORIDE 10% 100 MG/ML SYR IVP ONE; -CIPR500T4 PO; +DOCU-299 PO; +EPINEPHrine 1 MG/ML AMP ONE; -FINA5TAB1 PO; +HYDR-5122 PO; -PHEN-329 PO; +TAMS0.4C96 PO
--- NOTE | 2022-07-22 04:20 | NUR ---
LISA ALS TO BED #10
[2022-07-22] MEDS ORDERED: PRIMARY CRASH CART TRAY MC ONE (04:37)
--- NOTE | 2022-07-22 04:59 | NUR ---
TIME OF CALLED BY DR. BLANKENSHIP AT [phone]
--- NOTE | 2022-07-22 05:11 | NUR ---
SPOKE WITH DAVID AT [facility] PT IS ELIGIBLE FOR EYE AND TISSUE BANK. [phone]
--- NOTE | 2022-07-22 08:08 | NUR ---
SPOKE WITH TICKET SELLER DISPATCH. PER DISPATCH, WILL CALL BACK
--- NOTE | 2022-07-22 08:13 | NUR ---
SPOKE WITH AUNDREA WITH [facility] FOR UPDATE.
--- NOTE | 2022-07-22 09:05 | NUR ---
SPOKE WITH KOSTAS FROM [facility] SET UP OPERATOR'S OFFICE. PER KOSTAS, PT IS NOT A [employer] SET UP OPERATOR'S CASE
--- NOTE | 2022-07-22 09:46 | NUR ---
PER DELANO MELGOZA, PCP IS DR LIS HOGAN AT [facility]. CONTACTED [facility] AND LEFT VOICEMAIL AT THIS TIME. UNABLE TO REACH PCP AT THIS TIME
--- NOTE | 2022-07-22 09:50 | NUR ---
PER PT'S NIECE, RHONA, [phone][facility]
--- NOTE | 2022-07-22 09:55 | NUR ---
PER STAFF AT [facility] DAVID HOLLIS, WILL CALL BACK FOR AN UPDATED ETA.
--- NOTE | 2022-07-22 11:01 | NUR ---
PT MOVED OFF THE UNIT TO ROOM 128 PER SPRING TACKER CLAYTON, AWAITING MORTUARY. CHART GIVEN TO HOUSE SUP.
--- NOTE | 2022-07-22 11:18 | NUR ---
RECEIVED CALL FROM LOIS MELGOZA, MORTUARY CHANGED TO [employer] [facility]. CALLED MORTUARY, SPOKE WITH RASHEEDA, STATED HE NEEDED TO SPEAK WITH RHONA TO FINIALIZE EVERYTHING AND WILL CALL ME BACK WITH ETA
--- NOTE | 2022-07-22 11:26 | NUR ---
RECEIVED CALL FROM [facility], SPOKE WITH JENNIFER, STATED PT IS NO LONGER A CANDIDATE.
--- NOTE | 2022-07-22 12:27 | NUR ---
CALL RECEIVED FROM DAVID FROM [facility]. PER DAVID, WILL NOTIFY DR HOGAN
--- NOTE | 2022-07-22 12:31 | NUR ---
RASHEEDA FROM [facility] CALLED. PER RASHEEDA, WILL CALL WITH AN ETA FOR PICKUP. NOTIFIED RASHEEDA OF PT'S BODY IN ROOM 128.
== END 2022-07-22 04:40 ==
LOC: MED 04:20
DX: I46.9 Cardiac arrest, cause unspecified (principal); I10 Essential (primary) hypertension; Z79.899 Other long term (current) drug therapy
CPT/HCPCS: 31500; 92950; 99291; J0171